=== PATIENT | male | born 1955 | race African-American/Black ===

== ENCOUNTER 2017-06-18 19:49 | Emergency (ER) | payer MEDICAID ==
[2017-06-18 20:03] VITALS: BP 134/84; BMI 21.7
--- NOTE | 2017-06-18 23:27 | DR.GENAD ---
HPI - PCP Primary Care Physician: SUSHILA - Complaint/Symptoms Chief Complaint Doctors Comments: History as stated. Left hand 2nd digit with curved downward, swollen. Chief Complaint:: LEFT INDEX FINGER SWOLLEN, WENT TO [facility] 2 WEEKS AGO ER TRIED TO I&D BUT UNABLE TO GET ANYTHING OUT PAINFUL AND GETTING WORSE SINCE Self Treatment fo Chief Complaint: TWO ANTIBIOTICS PRESCRIBED BY ER DR HANNA ? OTHER UNKNOWN. PRN PAIN MEDICATION UNKNOWN TRAMADOL? - Source History Provided: Patient - Mode of Arrival Mode of Arrival: Ambulatory - Timing Onset of Chief Complaint: 06/16/17 PMH - PMH Past Medical History: Yes Past Medical History: Arthritis, Diabetes, Gout Past Surgical History: Yes Surgical History: Ortho Surgery Past Surgical History Comment: HERNIA. RIGH SHOULDER. CATARACTS/IMPLANT - Family History History of Family Medical Conditions: Yes Family Medical History: Diabetes Mellitus, Hypertension - Social History Does patient currently use any type of tobacco product: No Have you used tobacco products in the last 12 months: No Type of Tobacco Use: None Does any household member use tobacco: No Alcohol Use: None Do you use any recreational Drugs:: No Lives With: Spouse Lives Where: Home - infectious screening In the last 2 months have you had wt loss of >10#?: NO Have you had fever, night sweats or hemotysis?: No Have you traveled outside the country in the last 6 months?: No Isolation: Standard ROS - Review of Systems Eyes: No Symptoms Reported ENTM: No Symptoms Reported Respiratoy: No Symptoms Reported Cardiovascular: No Symptoms Reported Gastrointestinal/Abdominal: No Symptoms Reported Genitourinary: No Symptoms Reported Neurological: No Symptoms Reported Musculoskeletal: No Symptoms Reported Integumentary: No Symptoms Reported Hematologic/Lymphatic: No Symptoms Reported Endocrine: No Symptoms Reported Psychiatric: No Symptoms Reported All Other Systems: Reviewed and Negative PE - Vital Signs Vitals: Temperature 98.7 F Pulse Rate 79 Respiratory Rate 20 Blood Pressure 134/84 O2 Sat by Pulse Oximetry 97 - General General Appearance: Alert, In No Apparent Distress - Head Head Exam: Normal Inspection, Atraumatic - Eyes Eye exam: Normal Appearance, PERRL, EOMI - ENT ENT Exam: Normal Exam External Ear Exam: Normal External Inspection TM/Canal Exam: Bilateral Normal Nose Exam: Normal Nose Exam Mouth Exam: Normal Inspection Throat Exam: Normal Inspection - Neck Neck Exam: Normal Inspection, Full ROM - Chest Chest Inspection: Normal Inspection - Respiratory Respiratory Exam: Normal Lung Sounds Bilat Respiratory Exam: Bilateral Clear to Auscultation - Cardiovascular Cardiovascular Exam: Regular Rate - Abdominal Exam Abdominal Exam: Normal Inspection Abdominal Tenderness: negative: RUQ, RLQ, LUQ, LLQ, Epigastrium, Suprapubic, Diffuse, Mild, Moderate, Severe, Other - Extremities Extremities Exam: Joint Swelling (left hand 2nd digie with swelling distally with tenderness) Course - Education/Counseling Educated On: Treatment, Diagnosis, Prognosis, Needs for Follow Up ROR - Labs Reviewed Laboratory: Uric Acid 5.7 mg/dL (3.5-7.2) 06/18/17 23:40 - XRAY XRAY Interpreted by: Radiologist (Finger: There is lucency at the index finger distal phalangeal tuft, with soft tissue swelling noted. IP joint degenerative change and thumb carpometacarpal joint DJD noted. Vascular calcifications seen. The distal phalanx has a geographic lucency at the palmar aspect as well on the oblique view. Impression: Cortical destruction and bone los at the index finger distal phalanx with soft tissue swelling. Osteomyelitis might appear this way. Crystal deposition disease such as gout and even neoplasia might appear similarly. Correlate clinically. Infection is favored, but follow up to resolution is recommended. 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
--- NOTE | 2017-06-18 23:49 | RAD ---
Left hand three views Indication: Swollen index finger without trauma Findings: There is lucency at the index finger distal phalangeal tuft, with soft tissue swelling note d. IP joint degenerative change and thumb carpometacarpal joint DJD noted. Vascular calcifications se en. The distal phalanx has a geographic lucency at the palmar aspect as well on the oblique view. Impression: 1. Cortical destruction and bone loss at the index finger distal phalanx with soft tissue swelling. O steomyelitis might appear this way. Crystal deposition disease such as gout and even neoplasia might appear similarly. Correlate clinically. Infection is favored, but follow-up to resolution is recommen ded. 2. Degenerative changes as above. Reported By:
== END 2017-06-19 00:36 | disposition home or self-care (01) ==
LOC: ER 20:06
DX: M19.042 Primary osteoarthritis, left hand (principal)
CPT/HCPCS: 36415; 73130; 84550; 99282; 99283